=== PATIENT | female | born 1945 | race Caucasian/White ===

== ENCOUNTER 2024-07-15 13:22 | Inpatient (IN) | payer MEDICARE ==
[~2024-07-15] VITALS: Ht 152.4 cm; Wt 84.4 kg
[2024-07-15 14:19] LABS: BASOPHILS % (AUTO) 0.7 % (0.0-2.0); DIFFERENTIAL COMMENT 0; EOSINOPHILS # (AUTO) 0.1 K/uL (0.0-0.7); EOSINOPHILS % (AUTO) 2.4 % (0.0-7.0); HEMATOCRIT 32.8 % (31.2-41.9); HEMOGLOBIN 10.8 g/dL (10.9-14.3); LYMPHOCYTES # (AUTO) 0.3 K/uL (0.8-4.8); LYMPHOCYTES % (AUTO) 5.5 % (20.5-51.5); MEAN CORPUSCULAR HEMOGLOBIN 31.2 uug (24.7-32.8); MEAN CORPUSCULAR HGB CONC 33 g/dL (32.3-35.6); MEAN CORPUSCULAR VOLUME 95.2 fL (75.5-95.3); MONOCYTES # (AUTO) 0.5 K/uL (0.1-1.30); MONOCYTES % (AUTO) 8.1 % (0.0-11.0); NEUTROPHILS # (AUTO) 4.8 K/uL (1.8-8.9); NEUTROPHILS % (AUTO) 83.3 % (38.5-71.5); PLATELET COUNT (AUTO) 264 K/uL (179-408); RED BLOOD CELL COUNT(AUTO) 3.45 MIL/uL (3.63-4.92); RED CELL DISTRIBUTION WIDTH 15.4 % (12.3-17.7); WHITE BLOOD COUNT (AUTO) 5.7 K/uL (3.8-11.8)
[2024-07-15 14:22] LABS: AMMONIA 14 umol/L (11-32)
[2024-07-15 14:35] LABS: CALCIUM 9.1 mg/dL (8.5-10.1); CARBON DIOXIDE 24 mmol/L (21-32); CHLORIDE 106 mmol/L (98-107); CREATININE 1.1 mg/dL (0.6-1.3); GLUCOSE 103 mg/dL (74-106); POTASSIUM 4.8 mmol/L (3.5-5.1); SODIUM SERUM 140 mmol/L (136-145); UREA NITROGEN, BLOOD 20 mg/dL (7-18)
[2024-07-15 14:39] LABS: ACETAMINOPHEN 9.6 ug/mL (10-30); ALANINE AMINOTRANSFERASE 12 U/L (14-59); ALBUMIN 3.3 g/dL (3.4-5.0); ALKALINE PHOSPHATASE 88 U/L (50-136); ASPARTATE AMINOTRANSFERASE 7 U/L (15-37); BILIRUBIN,DIRECT 0.2 mg/dL (0.0-0.2); BILIRUBIN,TOTAL 0.7 mg/dL (0.2-1.0); TOTAL PROTEIN, SERUM 6.7 g/dL (6.4-8.2)
[2024-07-15 14:40] LABS: *BILIRUBIN,URIN NEGATIVE (NEGATIVE); *BLOOD, URINE NEGATIVE (NEGATIVE); *CLARITY,URINE CLEAR (CLEAR); *COLOR,URINE YELLOW (YELLOW); *KETONES,URINE NEGATIVE (NEGATIVE); *PROTEIN,URINE NEGATIVE (NEGATIVE); *UROBILINOGEN,URINE 0.2 E.U./dl (NORMAL); LEUKOCYTE ESTERASE ,URINE NEGATIVE (NEGATIVE); NITRITE, URINE NEGATIVE (NEGATIVE); UGLUCOSE NEGATIVE (NEGATIVE)
[2024-07-15 14:52] LABS: ETHANOL < 3 MG/DL (0-10)
[2024-07-15 14:56] LABS: *AMPHETAMINE, URINE NEGATIVE (NEGATIVE); *BARBITURATE, URINE NEGATIVE (NEGATIVE); *BENZODIAZEPINE, URINE POSITIVE (NEGATIVE); *CANNABINOID, URINE NEGATIVE (NEGATIVE); *COCCAINE, URINE NEGATIVE (NEGATIVE); *OPIATE, URINE NEGATIVE (NEGATIVE); *PHENCYCLIDINE SCREEN,URINE NEGATIVE (NEGATIVE); FENTANYL, URINE POSITIVE (NEGATIVE)
[2024-07-15] MEDS ORDERED: MAGNESIUM HYDROXIDE 30 ML LIQUID UDC PO PRN (17:00)
[2024-07-15] MEDS ORDERED: REMEDY ESSENTIAL ZINC PASTE 113 GM TP PRN (17:00)
[2024-07-15] MEDS ORDERED: NALOXONE HCL 0.4 MG/ML AMPUL IV PRN (17:00)
[2024-07-15 21:12] VITALS: BP 110/56; TEMP 97.6; O2SAT 100
[2024-07-15] MEDS: ENOXAPARIN SODIUM 40 MG/0.4 ML DISP.SYRIN SQ SCH (21:41)
[2024-07-15] MEDS: IV LACTATED RINGERS SOLUTION 1,000 ML IV PRN (22:18)
[2024-07-16 00:15] VITALS: BP 118/52; TEMP 97.7; O2SAT 99
[2024-07-16 04:43] VITALS: BP 143/71; TEMP 97.9; O2SAT 99
[2024-07-16] MEDS: PANTOPRAZOLE SODIUM 40 MG TABLET.DR PO SCH (06:19)
[2024-07-16 06:48] LABS: BASOPHILS % (AUTO) 0.4 % (0.0-2.0); EOSINOPHILS # (AUTO) 0.1 K/uL (0.0-0.7); EOSINOPHILS % (AUTO) 2.5 % (0.0-7.0); HEMATOCRIT 27.5 % (31.2-41.9); LYMPHOCYTES # (AUTO) 0.3 K/uL (0.8-4.8); LYMPHOCYTES % (AUTO) 7.6 % (20.5-51.5); MEAN CORPUSCULAR HEMOGLOBIN 31.4 uug (24.7-32.8); MEAN CORPUSCULAR HGB CONC 33 g/dL (32.3-35.6); MEAN CORPUSCULAR VOLUME 95.9 fL (75.5-95.3); MONOCYTES # (AUTO) 0.4 K/uL (0.1-1.30); MONOCYTES % (AUTO) 9.8 % (0.0-11.0); NEUTROPHILS % (AUTO) 79.7 % (38.5-71.5); PLATELET COUNT (AUTO) 176 K/uL (179-408); RED BLOOD CELL COUNT(AUTO) 2.86 MIL/uL (3.63-4.92); WHITE BLOOD COUNT (AUTO) 3.7 K/uL (3.8-11.8)
[2024-07-16 07:16] LABS: CALCIUM 8.5 mg/dL (8.5-10.1); CARBON DIOXIDE 23 mmol/L (21-32); CHLORIDE 107 mmol/L (98-107); CREATININE 0.8 mg/dL (0.6-1.3); GLUCOSE 80 mg/dL (74-106); PHOSPHOROUS 3.7 mg/dL (2.5-4.9); SODIUM SERUM 137 mmol/L (136-145); UREA NITROGEN, BLOOD 13 mg/dL (7-18)
[2024-07-16 07:45] LABS: DIFFERENTIAL COMMENT 1
[2024-07-16 07:59] VITALS: BP 129/73; TEMP 98.7; O2SAT 99
[2024-07-16 08:10] LABS: MAGNESIUM 1.1 mg/dL (1.8-2.4)
[2024-07-16] MEDS: MAGNESIUM SULFATE/D5W 100 ML IV SCH (10:10)
[2024-07-16] MEDS ORDERED: MAGNESIUM SULFATE/D5W 100 ML IV SCH (10:30)
[2024-07-16] MEDS ORDERED: OFLOXACIN 0.3% (11:35)
[2024-07-16 11:38] VITALS: BP 117/68; TEMP 98.8; O2SAT 94
[2024-07-16] MEDS ORDERED: BRIM5DRO2 (11:49)
[2024-07-16] MEDS ORDERED: FENT1PAT3 TD (11:49)
[2024-07-16] MEDS ORDERED: GABA600T12 PO (11:50)
[2024-07-16] MEDS ORDERED: PROP40TA7 PO (11:50)
[2024-07-16] MEDS ORDERED: NALO25TA4 PO (11:50)
[2024-07-16] MEDS ORDERED: FAMO40TA7 PO (11:52)
[2024-07-16] MEDS ORDERED: LOSA50TA39 PO (11:59)
[2024-07-16] MEDS ORDERED: VERA180T24 PO (11:59)
[2024-07-16] MEDS ORDERED: ATOR20TA PO (12:00)
[2024-07-16] MEDS ORDERED: APIX5TAB4 PO (12:00)
[2024-07-16] MEDS ORDERED: FESO4TAB PO (12:01)
[2024-07-16] MEDS ORDERED: METF-494 PO (12:01)
[2024-07-16] MEDS ORDERED: DEXL60CA3 PO (12:02)
[2024-07-16] MEDS: APIXABAN 5 MG TABLET PO SCH (12:08)
[2024-07-16] MEDS ORDERED: TEMA30CA PO (12:10)
[2024-07-16] MEDS ORDERED: TRAZ-182 PO (12:11)
[2024-07-16] MEDS: GABAPENTIN 300 MG CAPSULE PO SCH (13:15)
[2024-07-16] MEDS: ACETAMINOPHEN 325 MG TABLET PO PRN (13:16)
[2024-07-16 13:55] LABS: THYROID STIMULATING HORMONE 2.42 mIU/mL (0.358-3.740)
[2024-07-16 15:48] VITALS: BP 106/63; TEMP 98.2; O2SAT 98
[2024-07-16] MEDS: ONDANSETRON 4 MG/2 ML VIAL IV PRN (17:54)
[2024-07-16 20:00] VITALS: BP 115/65; TEMP 97.8; O2SAT 95
[2024-07-16] MEDS: ATORVASTATIN 40 MG TABLET PO SCH (21:27)
[2024-07-17] VITALS (7 sets, daily range): BP systolic 108–161; BP diastolic 41–93; TEMP 97.8–98.7; O2SAT 92–100
[2024-07-17] MEDS: ZOLPIDEM 5 MG TABLET PO PRN (01:26)
[2024-07-17 07:55] LABS: BASOPHILS % (AUTO) 0.4 % (0.0-2.0); EOSINOPHILS # (AUTO) 0.1 K/uL (0.0-0.7); EOSINOPHILS % (AUTO) 3.1 % (0.0-7.0); HEMATOCRIT 32.8 % (31.2-41.9); HEMOGLOBIN 10.9 g/dL (10.9-14.3); LYMPHOCYTES # (AUTO) 0.2 K/uL (0.8-4.8); LYMPHOCYTES % (AUTO) 5.7 % (20.5-51.5); MEAN CORPUSCULAR HEMOGLOBIN 31.3 uug (24.7-32.8); MEAN CORPUSCULAR HGB CONC 33 g/dL (32.3-35.6); MEAN CORPUSCULAR VOLUME 93.9 fL (75.5-95.3); MONOCYTES # (AUTO) 0.3 K/uL (0.1-1.30); NEUTROPHILS # (AUTO) 3.5 K/uL (1.8-8.9); NEUTROPHILS % (AUTO) 82.8 % (38.5-71.5); PLATELET COUNT (AUTO) 220 K/uL (179-408); RED BLOOD CELL COUNT(AUTO) 3.49 MIL/uL (3.63-4.92); WHITE BLOOD COUNT (AUTO) 4.2 K/uL (3.8-11.8)
[2024-07-17 08:03] LABS: CARBON DIOXIDE 30 mmol/L (21-32); CHLORIDE 106 mmol/L (98-107); CREATININE 0.8 mg/dL (0.6-1.3); GLUCOSE 108 mg/dL (74-106); MAGNESIUM 1.9 mg/dL (1.8-2.4); PHOSPHOROUS 4.6 mg/dL (2.5-4.9); POTASSIUM 4.4 mmol/L (3.5-5.1); SODIUM SERUM 143 mmol/L (136-145); UREA NITROGEN, BLOOD 9 mg/dL (7-18)
[2024-07-17 08:14] LABS: DIFFERENTIAL COMMENT 1
[2024-07-17] MEDS: hydrALAZINE HCL 25 MG TABLET PO SCH (12:03)
[2024-07-17] MEDS ORDERED: NALOXONE HCL 0.4 MG/ML AMPUL IV PRN (12:45)
[2024-07-17] MEDS ORDERED: Naloxegol Oxalate (Movantik) 25 MG) PO SCH (12:45)
[2024-07-17] MEDS ORDERED: FENTANYL 25 MCG/HR PATCH EACH TD SCH (12:45)
[2024-07-17] MEDS: PROPRANOLOL HCL 40 MG TABLET PO SCH (16:45)
[2024-07-17] MEDS: METFORMIN XR 500 MG TAB.SR.24H PO SCH (16:45)
[2024-07-17] MEDS: VERAPAMIL SR 180 MG TABLET.SA PO SCH (16:45)
[2024-07-17] MEDS: LOSARTAN POTASSIUM 50 MG TABLET PO SCH (20:21)
[2024-07-17] MEDS: TRAZODONE 50 MG TABLET PO SCH (20:21)
[2024-07-18 06:00] VITALS: BP 162/83; TEMP 98.3; O2SAT 99
[2024-07-18] MEDS: GLUCERNA SHAKE 237 ML CAN PO SCH (08:23)
[2024-07-18 11:15] VITALS: BP 139/70; TEMP 98.6; O2SAT 96
[2024-07-18 16:20] VITALS: BP 156/81; TEMP 98.1; O2SAT 98
[2024-07-18 16:45] VITALS: BP 173/88
[2024-07-18] MEDS: hydrALAZINE HCL 25 MG TABLET PO ONE (16:45)
== END 2024-07-18 17:15 | disposition home health service (06) | DRG 92 ==
LOC: ER 13:22 → TELE3 20:21 → MEDSURG3 07-17 09:51
PROVIDERS: ADMIT Nurse Practitioner Acute Care; ATTEND Nurse Practitioner Acute Care
DX: G92.8 Other toxic encephalopathy (principal); E44.1 Mild protein-calorie malnutrition; G45.9 Transient cerebral ischemic attack, unspecified; T40.415A Adverse effect of fentanyl or fentanyl analogs, initial encounter; Y92.89 Other specified places as the place of occurrence of the external cause; E83.42 Hypomagnesemia; R56.9 Unspecified convulsions; Z68.36 Body mass index [BMI] 36.0-36.9, adult; I69.998 Other sequelae following unspecified cerebrovascular disease; R32 Unspecified urinary incontinence; D53.9 Nutritional anemia, unspecified; I48.91 Unspecified atrial fibrillation; E88.09 Other disorders of plasma-protein metabolism, not elsewhere classified; J45.909 Unspecified asthma, uncomplicated; G62.9 Polyneuropathy, unspecified; M15.9 Polyosteoarthritis, unspecified; Z96.29 Presence of other otological and audiological implants; H61.22 Impacted cerumen, left ear; I10 Essential (primary) hypertension; E66.01 Morbid (severe) obesity due to excess calories
CPT/HCPCS: 36415; 70450; 71045; 83605; 83735; 83921; 84100; 84443; 84484; 85025; 85730; 87040; 93005; A4606; A4663; A6213; C1758; G0378; G0480; J1650; J2405; J3475; J7120